=== PATIENT | male | born 1980 | race African-American/Black ===

== ENCOUNTER 2016-11-10 14:55 | Emergency (ER) | payer OTHER ==
[2016-11-10] MEDS ORDERED: NORMAL SALINE 500 ML IV ONE (15:09)
[2016-11-10] MEDS ORDERED: MORPHINE SULFATE 10 MG/ML INJ IV ONE (15:09)
[2016-11-10] MEDS ORDERED: ONDANSETRON HCL INJ/PF 4 MG/2 ML SDV IV ONE (15:09)
--- NOTE | 2016-11-10 15:10 | ER Document Report ---
ED Fall - General Mode of Arrival: Wheelchair Information source: Patient TRAVEL OUTSIDE OF THE [place] IN LAST 30 DAYS: No - HPI Patient complains to provider of: Head and Neck pain Occurred: This afternoon Where: Outdoors Context: Fell from height - 12 feet Associated symptoms: Other - see notes above Prehospital interventions: C-collar <MAY ARANA - Last Filed: 11/10/16 17:03> <KOMAL LATHAM - Last Filed: 11/10/16 18:30> - General Chief Complaint: Neck Pain < 24hrs old Stated Complaint: FALL,NECK PAIN Time Seen by Provider: 11/10/16 15:09 Notes: 36 year old male presents to the ED after falling 12 feet off a ladder and landing on a concrete floor. Patient is complaining of posterior neck and head pain. Patient also states that he lost bowel control secondary to the fall. ( MAY ARANA) - Related data Allergies/Adverse Reactions: iodine [Iodine] Allergy (Verified 11/06/12 11:15) Penicillins Allergy (Verified 11/06/12 11:15) Past Medical History - General Information source: Patient - Social History Smoking Status: Unknown if Ever Smoked Family History: Reviewed & Not Pertinent Pulmonary Medical History: Reports: Hx Asthma Neurological Medical History: Reports: Hx Seizures Psychiatric Medical History: Reports: Hx Bipolar Disorder, Hx Schizophrenia - paranoid schizo - Immunizations Hx Diphtheria, Pertussis, Tetanus Vaccination: Yes <MAY ARANA - Last Filed: 11/10/16 17:03> Review of Systems - Review of Systems Constitutional: No symptoms reported EENT: No symptoms reported Cardiovascular: No symptoms reported Respiratory: No symptoms reported Gastrointestinal: No symptoms reported Genitourinary: No symptoms reported Male Genitourinary: No symptoms reported Musculoskeletal: See HPI, Neck pain - posterior, Other - poseterior headache Skin: No symptoms reported Hematologic/Lymphatic: No symptoms reported Neurological/Psychological: No symptoms reported -: Yes All other systems reviewed and negative <MAY ARANA - Last Filed: 11/10/16 17:03> Physical Exam - General General appearance: Alert In distress: None - HEENT Head: Normocephalic, Atraumatic Eyes: Normal Extraocular movements intact: Yes Pupils: PERRL - Respiratory Respiratory status: No respiratory distress Chest status: Nontender Breath sounds: Normal Chest palpation: Normal - Cardiovascular Rhythm: Regular Heart sounds: Normal auscultation - Abdominal Inspection: Normal Distension: No distension Tenderness: Nontender - Back Back: Tender - Tenderness to palpation from C1 to T4.. No: Normal - Extremities General upper extremity: Normal inspection, Normal ROM General lower extremity: Normal inspection, Normal ROM - Neurological Neuro grossly intact: Yes Cognition: Normal Orientation: Disoriented to time. No: AAOx4 [place] Coma Scale Eye Opening: Spontaneous [place] Coma Scale Verbal: Oriented Ji Coma Scale Motor: Obeys Commands Ji Coma Scale Total: 15 Speech: Normal Motor strength normal: LUE, RUE, LLE, RLE - Psychological Associated symptoms: Normal affect, Normal mood - Skin Skin Temperature: Warm Skin Moisture: Dry Skin Color: Normal <MAY ARANA - Last Filed: 11/10/16 17:03> Course - Laboratory Result Diagrams: 11/10/16 15:15 11/10/16 15:15 <MAY ARANA - Last Filed: 11/10/16 17:03> - Laboratory Result Diagrams: 11/10/16 15:15 11/10/16 15:15 - Diagnostic Test Radiology reviewed: Reports reviewed <KOMAL LATHAM - Last Filed: 11/10/16 18:30> - Re-evaluation Re-evalutation: 11/10/16 16:45 Patient and family updated on results. (MAY ARANA) 11/10/16 17:45 Patient is a 36-year-old male who fell off a ladder, hitting his back and head. Patient initially was confused and complaining of a headache. CT head, neck, chest abdomen and pelvis performed. Patient with no acute findings on imaging. Patient is feeling better after pain and nausea medication. No evidence of bleeding or anything broken. he is able to ambulate and he can tolerate p.o. Patient states that he would like to go home. He will be discharged home with pain medication and is to follow-up with his doctor. Stable for discharge. Return if any worsening or concerning symptoms. (KOMAL LATHAM) - Vital Signs Vital signs: Temp Pulse Resp BP Pulse Ox 98.9 F 16 123/88 H 100 11/10/16 17:30 11/10/16 15:14 11/10/16 16:03 11/10/16 15:14 - Laboratory Laboratory results interpreted by me: 11/10/16 11/10/16 15:15 15:15 Hgb 12.4 L MCH 26.1 L RDW 14.6 H Sodium 145.2 H Creatinine 1.38 H Est GFR (Non-Af Amer) 58 L Critical Care Note - Critical Care Note Total time excluding time spent on procedures (mins): 35 - Evaluate and manage trauma patient, multiple re-evaluations, clearing his C-spine, evaluation for internal injury, management of tachycardia, multiple re-evaluations, counseling patient and family <KOMAL LATHAM - Last Filed: 11/10/16 18:30> Discharge <MAY ARANA - Last Filed: 11/10/16 17:03> <KOMAL LATHAM - Last Filed: 11/10/16 18:30> - Discharge Clinical Impression: Head injury with loss of consciousness Back contusion Qualifiers: Encounter type: initial encounter Laterality: unspecified laterality Qualified Code(s): S20.229A - Contusion of unspecified back wall of thorax, initial encounter Cervical strain, acute Qualifiers: Encounter type: initial encounter Qualified Code(s): S16.1XXA - Strain of muscle, fascia and tendon at neck level, initial encounter Condition: Stable Disposition: AGAINST MEDICAL ADVICE Instructions: Contusion ([facility]), Neck Injury (Cervical Strain) ([facility]), Head Injury Precautions ([facility]), Concussion ([facility]) Prescriptions: Cyclobenzaprine HCl [Flexeril 10 Mg Tablet] 10 mg PO BIDP PRN #20 tablet PRN Reason: Oxycodone HCl/Acetaminophen [Percocet 5-325 mg Tablet] 1 - 2 tab PO Q4H PRN #15 tablet PRN Reason: Forms: Return to Work Scribe Attestation: 11/10/16 18:30 I personally performed the services described in the documentation, reviewed and edited the documentation which was dictated to the scribe in my presence, and it accurately records my words and actions. (KOMAL LATHAM) Scribe Documentation - Scribe Written by Scribe:: Shruthi Kumari, 11/10/2016 1703 acting as scribe for :: Olivia <MAY ARANA - Last Filed: 11/10/16 17:03>
[2016-11-10 15:33] LABS: ABSOLUTE BASOPHILS # (AUTO) 0.1 10^3/uL (0.0-0.2); ABSOLUTE EOSINOPHILS # (AUTO) 0.2 10^3/uL (0.0-0.6); ABSOLUTE LYMPHOCYTES (AUTO) 2.3 10^3/uL (0.5-4.7); ABSOLUTE MONOCYTES (AUTO) 0.5 10^3/uL (0.1-1.4); ABSOLUTE NEUT (AUTO) 3.8 10^3/uL (1.7-8.2); BASOPHILS % (AUTO) 0.8 % (0-2); EOSINOPHILS % (AUTO) 3.4 % (0-6); HEMATOCRIT 38.4 % (37.9-51.0); HEMOGLOBIN 12.4 g/dL (13.5-17.0); HGB HCT DIFFERENCE -1.2; MEAN CORPUSCULAR HEMOGLOBIN 26.1 pg (27.0-33.4); MEAN CORPUSCULAR HGB CONC 32.3 g/dL (32.0-36.0); MEAN CORPUSCULAR VOLUME 81 fl (80-97); MONOCYTES % (AUTO) 7.1 % (3-13); RED BLOOD COUNT 4.76 10^6/uL (4.35-5.55); RED CELL DISTRIBUTION WIDTH 14.6 % (11.5-14.0); SEGMENTED NEUTROPHILS % (AUTO) 55.7 % (42-78); WHITE BLOOD COUNT 6.9 10^3/uL (4.0-10.5)
--- NOTE | 2016-11-10 15:48 | RADIOLOGY REPORT (SQ) ---
EXAM DESCRIPTION: CT HEAD WITHOUT COMPLETED DATE/TIME: 11/10/2016 3:33 pm REASON FOR STUDY: er t1 trauma fall COMPARISON: None. TECHNIQUE: Axial images acquired through the brain without intravenous contrast. Images reviewed wi th bone, brain and subdural windows. Images stored on PACS. All CT scanners at this facility use dose modulation, iterative reconstruction, and/or weight based d osing when appropriate to reduce radiation dose to as low as reasonably achievable (ALARA). [facility]: Dose Right [facility]: CareDose [facility]: Dose Right [facility]: Teradose 4D [facility]: [employer] RADIATION DOSE: Up-to-date CT equipment and radiation dose reduction techniques were employed. CTDIv ol: 59.9 mGy. DLP: 1163 mGy-cm. mGy. LIMITATIONS: None. FINDINGS: VENTRICLES: Normal size and contour. CEREBRUM: No masses. No hemorrhage. No midline shift. Normal hunter/white matter differentiation. N o evidence for acute infarction. CEREBELLUM: No masses. No hemorrhage. No alteration of density. No evidence for acute infarction. EXTRAAXIAL SPACES: No fluid collections. No masses. ORBITS AND GLOBE: No intra- or extraconal masses. Normal contour of globe without masses. CALVARIUM: No fracture. PARANASAL SINUSES: No fluid or mucosal thickening. SOFT TISSUES: No mass or hematoma. OTHER: No other significant finding. IMPRESSION: NORMAL BRAIN CT WITHOUT CONTRAST. TECHNICAL DOCUMENTATION: JOB ID: [id number] Quality ID # [id number]: Final reports with documentation of one or more dose reduction techniques (e.g., Au tomated exposure control, adjustment of the mA and/or kV according to patient size, use of iterative reconstruction technique) 2010 [employer]- All Rights Reserved
[2016-11-10 15:52] LABS: ALANINE AMINOTRANSFERASE 29 U/L (21-72); ALBUMIN 4.6 g/dL (3.5-5.0); ALKALINE PHOSPHATASE 68 U/L (38-126); ANION GAP 14 (5-19); ASPARTATE AMINO TRANSFERASE 32 U/L (17-59); BILIRUBIN,DIRECT 0.3 mg/dL (0.0-0.4); BILIRUBIN,TOTAL 0.5 mg/dL (0.2-1.3); BLOOD UREA NITROGEN 17 mg/dL (7-20); CALCIUM 9.9 mg/dL (8.4-10.2); CARBON DIOXIDE 24 mmol/L (22-30); CHLORIDE 107 mmol/L (98-107); CREATININE RESULT 1.38 mg/dL (0.52-1.25); GLUCOSE 93 mg/dL (75-110); POTASSIUM 4.4 mmol/L (3.6-5.0); SODIUM 145.2 mmol/L (137-145)
--- NOTE | 2016-11-10 16:10 | RADIOLOGY REPORT (SQ) ---
EXAM DESCRIPTION: CT CHEST WITH; CT ABD/PELVIS WITH IV ONLY COMPLETED DATE/TIME: 11/10/2016 3:33 pm REASON FOR STUDY: er t1 trauma fall COMPARISON: CT thoracic spine 09/12/2012 CONTRAST TYPE AND DOSE: contrast/concentration: Isovue 370.00 mg/ml; Total Contrast Delivered: 99.0 ml; Total Saline Delivered: 43.9 ml RENAL FUNCTION: None required. The patient is less than 50 years old TECHNIQUE: CT scan of the chest performed using helical scanning technique with dynamic intravenous contrast injection. Images reviewed with lung, soft tissue and bone windows. Reconstructed coronal a nd sagittal MPR images reviewed. All images stored on PACS. CT scan of the abdomen and pelvis performed with intravenous and without oral contrastusing helical s mary ann technique with dynamic intravenous contrast injection. Images reviewed with lung, soft tissu e and bone windows. Reconstructed coronal and sagittal MPR images reviewed. Delayed images for eval uation of the urinary system also acquired and evaluated. All images stored on PACS. All CT scanners at this facility use dose modulation, iterative reconstruction, and/or weight based d osing when appropriate to reduce radiation dose to as low as reasonably achievable (ALARA). [facility]: Dose Right [facility]: CareDose [facility]: Dose Right [facility]: Teradose 4D [facility]: [employer] RADIATION DOSE: Up-to-date CT equipment and radiation dose reduction techniques were employed. CTDIv ol: 21.0 - 21.1 mGy. DLP: 2749 mGy-cm. . LIMITATIONS: None. FINDINGS: CHEST: LUNGS AND PLEURA: No opacities, nodules, masses. No pneumothorax. No effusions. HILAR AND MEDIASTINAL STRUCTURES: No identified masses or abnormal nodes. HEART AND VASCULAR STRUCTURES: No aneurysm or dissection. No central pulmonary emboli. No pericardi al effusion. HARDWARE: None. THYROID AND OTHER SOFT TISSUES: No masses. No adenopathy. BONES: No significant finding. OTHER: No other significant finding. ABDOMEN AND PELVIS: LIVER: Normal size. No dilated ducts. 2 cm hemangioma left lobe liver image 58. SPLEEN: Normal size. No focal lesions. PANCREAS: No masses. No significant calcifications. No adjacent inflammation or peripancreatic fluid collections. Pancreatic duct not dilated. GALLBLADDER: No identified stones by CT criteria. No inflammatory changes to suggest cholecystitis. ADRENAL GLANDS: No significant masses or asymmetry. RIGHT KIDNEY AND URETER: No solid masses. No significant calcification. No hydronephrosis or hydroure ter. LEFT KIDNEY AND URETER: No solid masses. No significant calcification. No hydronephrosis or hydrouret er. AORTA AND VESSELS: No aneurysm. No dissection. Renal arteries, SMA, celiac without stenosis. RETROPERITONEUM: No retroperitoneal adenopathy, hemorrhage or masses. BOWEL AND PERITONEAL CAVITY: No masses or inflammatory changes. No free fluid or peritoneal masses. APPENDIX: Normal. ABDOMINAL WALL: No masses. No hernias. BONES: No significant or acute findings. PELVIS: No other significant finding. No pelvic free fluid. No adenopathy. No masses. IMPRESSION: NORMAL CT OF THE CHEST WITH IV CONTRAST. NORMAL CT OF THE ABDOMEN AND PELVIS WITH ORAL AND INTRAVENOUS CONTRAST. TECHNICAL DOCUMENTATION: JOB ID: [id number] Quality ID # [id number]: Final reports with documentation of one or more dose reduction techniques (e.g., Au tomated exposure control, adjustment of the mA and/or kV according to patient size, use of iterative reconstruction technique) 2010 [employer]- All Rights Reserved
--- NOTE | 2016-11-10 16:16 | RADIOLOGY REPORT (SQ) ---
EXAM DESCRIPTION: CT CERVICAL SPINE WITHOUT COMPLETED DATE/TIME: 11/10/2016 3:33 pm REASON FOR STUDY: er t1 trauma fall COMPARISON: CT cervical spine 01/24/2016 TECHNIQUE: Axial images acquired through the cervical spine without intravenous contrast. Images re viewed with lung, soft tissue and bone windows. Reconstructed coronal and sagittal MPR images review ed. Images stored on PACS. All CT scanners at this facility use dose modulation, iterative reconstruction, and/or weight based d osing when appropriate to reduce radiation dose to as low as reasonably achievable (ALARA). [facility]: Dose Right [facility]: CareDose [facility]: Dose Right [facility]: Teradose 4D [facility]: [employer] RADIATION DOSE: Up-to-date CT equipment and radiation dose reduction techniques were employed. CTDIv ol: 26.9 mGy. DLP: 536 mGy-cm. mGy. LIMITATIONS: None. FINDINGS: ALIGNMENT: Anatomic. MINERALIZATION: Normal. VERTEBRAL BODIES: Post corpectomy at C4 and C5, with a bone graft in place and anterior fixation plat e with anchoring screws into the C3 and C6 vertebral bodies. Central canal is decompressed at the le susan of prior corpectomies. DISCS: Craniocervical junction, C1-2 is unremarkable. At C2-3 mild posterior bony spurring is presen t without central or right foraminal narrowing. Mild left foraminal narrowing. At C3-4, C4-5, and C5-6 there is bone graft material across the disc spaces from prior corpectomy at C4, C5, and upper half of C6. No central stenosis. Moderate bilateral foraminal narrowing from face t and uncovertebral hypertrophy. At C6-7, broad diffuse posterior disc bulging and bony spurring is present, causing mild central lyssa l narrowing. No significant foraminal stenosis. T1-2 is unremarkable. FACETS, LATERAL MASSES, POSTERIOR ELEMENTS: No fractures. No dislocation. No acute findings. HARDWARE: None in the spine. VISUALIZED RIBS: No fractures. LUNG APICES AND SOFT TISSUES: No significant or acute findings. OTHER: No other significant finding. IMPRESSION: Postsurgical changes, similar compared to 01/24/2016 No acute fracture or malalignment. TECHNICAL DOCUMENTATION: JOB ID: [id number] Quality ID # [id number]: Final reports with documentation of one or more dose reduction techniques (e.g., Au tomated exposure control, adjustment of the mA and/or kV according to patient size, use of iterative reconstruction technique) 2010 [employer]- All Rights Reserved
[2016-11-10] MEDS ORDERED: DIAZEPAM 2 MG TABLET PO ONE (16:51)
[2016-11-10 17:21] VITALS: BP 123/88
[2016-11-10] MEDS ORDERED: HYDROCODONE/ACETAMINOPHEN 5-325 MG 6 TAB/DSPK PO PRN (17:33)
[2016-11-10] MEDS ORDERED: ONDANSETRON ODT 4 MG TAB (6 TAB/DSPK) PO PRN (17:33)
== END 2016-11-10 17:55 | disposition left against medical advice (07) ==
LOC: ER 14:55
DX: S06.0X9A Concussion with loss of consciousness of unspecified duration, initial encounter (principal); S16.1XXA Strain of muscle, fascia and tendon at neck level, initial encounter; S20.229A Contusion of unspecified back wall of thorax, initial encounter; W11.XXXA Fall on and from ladder, initial encounter; Y99.0 Civilian activity done for income or pay; M54.2 Cervicalgia; R51 Headache; R15.9 Full incontinence of feces; R00.0 Tachycardia, unspecified; J45.909 Unspecified asthma, uncomplicated; Z88.0 Allergy status to penicillin
CPT/HCPCS: 99285; 96374; 36415; 85025; 80053; 70450; 71260; 72125; 74177; J3490; J2270; J2405; J7040; 96361

== ENCOUNTER 2016-12-23 14:12 | Emergency (ER) | payer SELFPAY ==
[2016-12-23 14:20] VITALS: BP 112/67
--- NOTE | 2016-12-23 15:02 | ER Document Report ---
ED Medical Screen (RME) - General Chief Complaint: General Weakness Stated Complaint: SPIDER BITE Time Seen by Provider: 12/23/16 14:56 Mode of Arrival: Ambulatory Information source: Patient TRAVEL OUTSIDE OF THE [place] IN LAST 30 DAYS: No - HPI Onset: This morning Onset/Duration: Sudden Context: BITTEN 2 d AGO BY UNSEEN "SPIDER', LATER BITTEN I NEARBY AREA BY TICK (REMOVED) Quality of pain: Achy Severity: Mild Associated Symptoms: Chills, Headache, Sweating Exacerbated by: Denies Relieved by: Denies Similar symptoms previously: No Recently seen / treated by doctor: No - Related Data Smoking: Cigarettes Frequency of alcohol use: Occasional Drug Abuse: None Allergies/Adverse Reactions: iodine [Iodine] Allergy (Verified 12/23/16 14:17) Penicillins Allergy (Verified 12/23/16 14:17) Past Medical History - General Information source: Patient - Social History Cigarette use (# per day): Yes Chew tobacco use (# tins/day): No Frequency of alcohol use: Occasional Drug Abuse: None Lives with: Spouse/Significant other Family history: Reviewed & Not Pertinent - Past Medical History Cardiac Medical History: Reports: None Pulmonary Medical History: Reports: Hx Asthma Neurological Medical History: Reports: Hx Seizures Endocrine Medical History: Reports: None. Denies: Hx Diabetes Mellitus Type 1, Hx Diabetes Mellitus Type 2 Renal/ Medical History: Reports: None. Denies: Hx Peritoneal Dialysis Malignancy Medical History: Reports None Musculoskeltal Medical History: Reports None Psychiatric Medical History: Reports: Hx Bipolar Disorder, Hx Schizophrenia - paranoid schizo - Immunizations Hx Diphtheria, Pertussis, Tetanus Vaccination: Yes Review of Systems - Review of Systems Constitutional: Chills, Diaphoresis EENT: No symptoms reported Cardiovascular: No symptoms reported Respiratory: No symptoms reported Gastrointestinal: Nausea Musculoskeletal: See HPI, Other - GENERALIZED ACHES Skin: See HPI Physical Exam - Vital signs Vitals: Temp Pulse Resp BP Pulse Ox 98.0 F 85 18 112/67 95 12/23/16 14:17 12/23/16 14:17 12/23/16 14:17 12/23/16 14:17 12/23/16 14:17 Interpretation: Normal. No: Tachycardic, Tachypneic, Febrile - General General appearance: Appears well, Alert In distress: None - HEENT Head: Normocephalic Eyes: Normal Conjunctiva: Normal Ears: Normal Nasal: Normal Mouth/Lips: Normal Mucous membranes: Normal Neck: Normal, Supple - Respiratory Respiratory status: No respiratory distress - Cardiovascular Rhythm: Regular - Abdominal Inspection: Normal Distension: No distension Bowel sounds: Normal - Back Back: Normal - Extremities General upper extremity: No: Normal inspection General lower extremity: Normal inspection - SMALL ULCERATED LESION MEDIAL/ PROXIMAL L. ARM - Neurological Neuro grossly intact: Yes Cognition: Normal Orientation: AAOx4 - Psychological Associated symptoms: Normal affect, Normal mood - Skin Skin Temperature: Warm Skin Moisture: Dry Skin Color: Normal Skin Turgor: Elastic Skin irregularity: Lesion - SEE AOVE Course - Vital Signs Vital signs: Temp Pulse Resp BP Pulse Ox 98.0 F 85 18 112/67 95 12/23/16 14:17 12/23/16 14:17 12/23/16 14:17 12/23/16 14:17 12/23/16 14:17 Doctor's Discharge - Discharge Clinical Impression: Spider bite Qualifiers: Encounter type: initial encounter Injury intent: accidental or unintentional Qualified Code(s): T63.301A - Toxic effect of unspecified spider venom, accidental (unintentional), initial encounter Tick bite Qualifiers: Encounter type: initial encounter Qualified Code(s): W57.XXXA - Bitten or stung by nonvenomous insect and other nonvenomous arthropods, initial encounter Headache Qualifiers: Headache type: unspecified Headache chronicity pattern: acute headache Intractability: not intractable Qualified Code(s): R51 - Headache Condition: Stable Disposition: HOME, SELF-CARE Instructions: Tick Bites ([facility]), Headache ([facility]), Oral Narcotic Medication ([facility]) , Doxycycline ([facility]) Additional Instructions: REST, DRINK PLENTY OF FLUIDS. TAKE DOXYCYCLINE DIRECTED. YOU MAY TAKE FIORICET FOR HEADACHE IF NEEDED. RETURN TO E.R. OR FOLLOW UP WITH YOUR PRIMARY CARE PROVIDER IF NOT IMPROVED IN 48 HOURS, OR SOONER IF WORSE ANY TIME. Prescriptions: Butalb/Acetaminophen/Caffeine [Fioricet (50-325-40 mg) Tablet] 1 - 2 tab PO Q4H PRN #20 each PRN Reason: For Headache Doxycycline Monohydrate 100 mg PO BID #28 capsule Forms: Return to Work
== END 2016-12-23 15:30 | disposition home or self-care (01) ==
LOC: ER 14:12
DX: T63.301A Toxic effect of unspecified spider venom, accidental (unintentional), initial encounter (principal); T14.8 Other injury of unspecified body region; W57.XXXA Bitten or stung by nonvenomous insect and other nonvenomous arthropods, initial encounter; R68.83 Chills (without fever); R51 Headache; R61 Generalized hyperhidrosis; R60.9 Edema, unspecified; R11.0 Nausea; J45.909 Unspecified asthma, uncomplicated; Z72.0 Tobacco use; Z88.0 Allergy status to penicillin
CPT/HCPCS: 99282

== ENCOUNTER 2017-06-08 00:33 | Emergency (ER) | payer OTHER ==
--- NOTE | 2017-06-08 01:55 | RADIOLOGY REPORT (SQ) ---
EXAM DESCRIPTION: SHOULDER LEFT 1 VIEW CLINICAL HISTORY: fall, pain COMPARISON: None. FINDINGS: Single view of the left shoulder. No definite acute fracture or dislocation based on this single frontal view. Degenerative change of the acromioclavicular joint. No left sided rib fracture or left-sided pneumothorax. IMPRESSION: 1. No definite acute fracture or dislocation based on single frontal view.
--- NOTE | 2017-06-08 01:55 | RADIOLOGY REPORT (SQ) ---
EXAM DESCRIPTION: CHEST SINGLE VIEW CLINICAL HISTORY: fall, pain COMPARISON: 12/19/2015 FINDINGS: Single frontal view of the chest. The cardiomediastinal silhouette has normal size and contour. No consolidation, pneumothorax, or pleural effusion. No displaced rib fractures identified. Upper abdominal soft tissues are unremarkable. Postoperative change of the cervical spine. IMPRESSION: 1. No acute pulmonary process identified.
--- NOTE | 2017-06-08 02:17 | ER Document Report ---
ED Fall - General Mode of Arrival: Ambulatory Information source: Patient TRAVEL OUTSIDE OF THE [place] IN LAST 30 DAYS: No - HPI Patient complains to provider of: Neck and lower back pain Occurred: Yesterday Location of injury/pain: Other - see notes above Prehospital interventions: C-collar <MAY ARANA - Last Filed: 06/08/17 02:32> <KOMAL LATHAM - Last Filed: 06/08/17 05:06> - General Chief Complaint: Fall Stated Complaint: NECK SHOULDER PAIN Time Seen by Provider: 06/08/17 01:19 Notes: 36 year old male presents to the ED accompanied by a public health service officer complaining of lower back pain and medial bilateral scapula pain that started secondary to a fall that occurred yesterday. Patient reports that he fell down 20 flights of metal stairs from the second story. Patient lost consciousness for a brief moment, but remembers everything. Patient has midline lower back pain and exacerbated pain when moving his right leg. Patient reports decreased sensation to the right lower extremity. (MAY ARANA) - Related data Allergies/Adverse Reactions: iodine [Iodine] Allergy (Verified 12/23/16 14:17) Penicillins Allergy (Verified 12/23/16 14:17) Past Medical History - General Information source: Patient - Social History Smoking Status: Former Smoker Frequency of alcohol use: None Drug Abuse: None Family History: Reviewed & Not Pertinent Patient has suicidal ideation: No Patient has homicidal ideation: No Pulmonary Medical History: Reports: Hx Asthma Neurological Medical History: Reports: Hx Seizures Endocrine Medical History: Denies: Hx Diabetes Mellitus Type 1, Hx Diabetes Mellitus Type 2 Renal/ Medical History: Denies: Hx Peritoneal Dialysis Psychiatric Medical History: Reports: Hx Bipolar Disorder, Hx Schizophrenia - paranoid schizo - Immunizations Hx Diphtheria, Pertussis, Tetanus Vaccination: Yes <MAY ARANA - Last Filed: 06/08/17 02:32> Review of Systems - Review of Systems Constitutional: No symptoms reported EENT: No symptoms reported Cardiovascular: No symptoms reported Respiratory: No symptoms reported Gastrointestinal: No symptoms reported Genitourinary: No symptoms reported Male Genitourinary: No symptoms reported Musculoskeletal: See HPI, Back pain - lower, Neck pain Skin: No symptoms reported Hematologic/Lymphatic: No symptoms reported Neurological/Psychological: See HPI, Sensory change - decreased sensation of the right lower extremity <MAY ARANA - Last Filed: 06/08/17 02:32> Physical Exam - General General appearance: Alert In distress: None - HEENT Head: Normocephalic, Atraumatic Eyes: Normal Extraocular movements intact: Yes Pupils: PERRL Neck: Other - Tenderness to palpation from C5-C7. No: Normal - Respiratory Respiratory status: No respiratory distress Breath sounds: Normal - Cardiovascular Rhythm: Regular Heart sounds: Normal auscultation - Abdominal Inspection: Normal - Back Back: Tender - Lower back, CVA tenderness - right, Other - TTP to the medial scapula, bilaterally. No: Normal - Extremities General upper extremity: Normal inspection, Normal ROM General lower extremity: No: Normal inspection - see foot and ankle exam below Ankle: Limited ROM. No: Normal Foot: Other - limited ROM - Neurological Neuro grossly intact: Yes Cognition: Normal Orientation: AAOx4 Ji Coma Scale Eye Opening: Spontaneous [place] Coma Scale Verbal: Oriented Ji Coma Scale Motor: Obeys Commands [place] Coma Scale Total: 15 Speech: Normal Sensory: Altered light touch - decreased sensation to light tough to the right foot. No: Normal - Psychological Associated symptoms: Normal affect, Normal mood - Skin Skin Temperature: Warm Skin Moisture: Dry Skin Color: Normal <MAY ARANA - Last Filed: 06/08/17 02:32> - Vital signs Vitals: Temp Pulse Resp BP Pulse Ox 98.7 F 77 18 117/72 100 06/08/17 00:33 06/08/17 00:33 06/08/17 00:33 06/08/17 00:33 06/08/17 00:33 Course <MAY ARANA - Last Filed: 06/08/17 02:32> - Diagnostic Test Radiology reviewed: Reports reviewed <KOMAL LATHAM - Last Filed: 06/08/17 05:06> - Re-evaluation Re-evalutation: 06/08/17 04:39 Patient with no acute findings on imaging. He is able to ambulate without difficult. Taking p.o. without difficulty. Moving his neck without difficulty. He is neurovascularly intact. He would like a note to see that he can have more pillows at intermediate so that he can relieve some of the pressure on his back. Stable for discharge. He may take Tylenol or ibuprofen as needed. Agrees with this plan. (KOMAL LATHAM) - Vital Signs Vital signs: Temp Pulse Resp BP Pulse Ox 98.3 F 75 16 124/79 97 06/08/17 04:57 06/08/17 04:57 06/08/17 04:57 06/08/17 04:57 06/08/17 04:57 Discharge <MAY ARANA - Last Filed: 06/08/17 02:32> <KOMAL LATHAM - Last Filed: 06/08/17 05:06> - Discharge Clinical Impression: Head injury Qualifiers: Encounter type: initial encounter Qualified Code(s): S09.90XA - Unspecified injury of head, initial encounter Contusion, back Qualifiers: Encounter type: initial encounter Laterality: unspecified laterality Qualified Code(s): S20.229A - Contusion of unspecified back wall of thorax, initial encounter Cervical strain Qualifiers: Encounter type: initial encounter Qualified Code(s): S16.1XXA - Strain of muscle, fascia and tendon at neck level, initial encounter Condition: Stable Disposition: HOME, SELF-CARE Instructions: Contusion ([facility]), Head Injury Precautions ([facility]), Low Back Pain ( [facility]), Neck Injury (Cervical Strain) ([facility]) Additional Instructions: You may take Tylenol or Ibuprofen as needed for pain. You may have extra pillows to help relieve the pressure on your back. Scribe Attestation: 06/08/17 04:45 I personally performed the services described in the documentation, reviewed and edited the documentation which was dictated to the scribe in my presence, and it accurately records my words and actions. (KOMAL LATHAM) Scribe Documentation - Scribe Written by Scribe:: Shruthi Kumari, 06/08/2017 [id number] acting as scribe for :: Olivia <MAY ARANA - Last Filed: 06/08/17 02:32>
[2017-06-08] MEDS ORDERED: ACETAMINOPHEN 325 MG TABLET PO ONE (02:18)
[2017-06-08] MEDS ORDERED: ONDANSETRON 4 MG TAB.RAPDIS PO ONE (02:18)
--- NOTE | 2017-06-08 03:23 | RADIOLOGY REPORT (SQ) ---
EXAM DESCRIPTION: CT HEAD WITHOUT CLINICAL HISTORY: fall down stairs, loc, head injury COMPARISON: None available TECHNIQUE: Axial CT of the head obtained from the skull apex to the skull base without contrast. FINDINGS: No acute intracranial hemorrhage identified. No mass, mass effect, shift of the midline, abnormal extra-axial fluid collection or CT evidence of acute ischemic change identified. The ventricular system is unremarkable. No acute abnormalities of the supratentorial white matter, basal ganglia, cerebellum, or brainstem. Mucosal thickening of the paranasal sinuses. No skull fracture identified. Visualized orbits and globes are unremarkable. DLP: 1316.28 mGy-cm IMPRESSION: 1. No acute intracranial abnormality identified. This exam was performed according to our departmental dose-optimization program, which includes automated exposure control, adjustment of the mA and/or kV according to patient size and/or use of iterative reconstruction technique.
--- NOTE | 2017-06-08 03:55 | RADIOLOGY REPORT (SQ) ---
EXAM DESCRIPTION: CT CHEST, ABDOMEN AND PELVIS WITHOUT CONTRAST CLINICAL HISTORY: falll, back/R flank pain, r leg pain, paresthesias COMPARISON: None Available. TECHNIQUE: CT of the chest, abdomen and pelvis without IV contrast. FINDINGS: CHEST: No abnormalities of visualized esophagus. Great vessels have normal anatomic configuration. No significant mediastinal fat stranding. No abnormalities of the thoracic aorta by noncontrast CT criteria. No cardiomegaly, pericardial effusion, or coronary artery atherosclerosis. No abnormalities of the esophagus. No mediastinal lymphadenopathy. Lung windows demonstrate no consolidation, pneumothorax, or pleural effusion. No abnormalities of the trachea. Abdomen: The liver has normal size and density. No calcified gallstones. The spleen, pancreas, and adrenal glands are unremarkable. The kidneys have normal size and contour without evidence of hydronephrosis. No obstructing ureteral calculi. The aorta and IVC have normal caliber and position. No free intraperitoneal air. The stomach and duodenum have normal course. Pelvis: Prostate is not enlarged. Urinary bladder is unremarkable. No free pelvic fluid or lymphadenopathy. No dilated loops of large or small bowel. Normal appendix. No destructive bone lesions identified. No acute fractures identified. Mild degenerative change of the spine. DLP: 1982.97 mGy-cm IMPRESSION: 1. No evidence of traumatic injury involving the chest, abdomen, or pelvis by noncontrast CT criteria. This exam was performed according to our departmental dose-optimization program, which includes automated exposure control, adjustment of the mA and/or kV according to patient size and/or use of iterative reconstruction technique.
--- NOTE | 2017-06-08 04:17 | RADIOLOGY REPORT (SQ) ---
EXAM DESCRIPTION: CT CERVICAL SPINE WITHOUT CLINICAL HISTORY: fall down stairs, neck pain COMPARISON: None available TECHNIQUE: Axial CT of the cervical spine obtained without contrast. FINDINGS: Alignment of the cervical spine is maintained without evidence of subluxation. The atlantoaxial, atlantodental, and occipitoatlantal intervals are preserved. No fracture identified. Vertebral body height preserved. Prevertebral soft tissues are unremarkable. Anterior fusion at C3-C6. Mild endplate spondylosis at C6/7. No significant central canal nor neural foraminal narrowing. Mild facet arthropathy. Visualized skull base is intact. No fracture of the visualized facial bones. Visualized mastoid air cells and paranasal sinuses are well aerated. Visualized thyroid is unremarkable. No cervical lymphadenopathy. No pneumothorax in the visualized lung apices. DLP:236.23 mGy-cm IMPRESSION: 1. No acute fracture or subluxation of the cervical spine. This exam was performed according to our departmental dose-optimization program, which includes automated exposure control, adjustment of the mA and/or kV according to patient size and/or use of iterative reconstruction technique.
[2017-06-08] MEDS ORDERED: KETOROLAC TROMETHAMINE 60 MG/2 ML SDV IM ONE (04:23)
[2017-06-08] MEDS ORDERED: METOCLOPRAMIDE HCL 10 MG TABLET PO ONE (04:23)
[2017-06-08 04:58] VITALS: BP 124/79
== END 2017-06-08 05:04 | disposition home or self-care (01) ==
LOC: ER 00:33
DX: S09.90XA Unspecified injury of head, initial encounter (principal); S20.229A Contusion of unspecified back wall of thorax, initial encounter; S16.1XXA Strain of muscle, fascia and tendon at neck level, initial encounter; M54.5 Low back pain; W10.9XXA Fall (on) (from) unspecified stairs and steps, initial encounter; Z88.0 Allergy status to penicillin
CPT/HCPCS: 99284; 96372; 71045; 73020; 70450; 71250; 72125; 74176; L0120; J1885; S0119

== ENCOUNTER 2020-02-04 19:12 | Emergency (ER) | payer SELFPAY ==
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
--- NOTE | 2020-02-04 20:25 | RADIOLOGY REPORT (SQ) ---
EXAM DESCRIPTION: CT CERVICAL SPINE WITHOUT IV CONTRAST COMPLETED DATE/TME: 02/04/2020 19:55 CLINICAL HISTORY: 39 years, Male, Fall head neck and low back injury loss of conscio COMPARISON: Prior study from 06/08/2017 TECHNIQUE: Noncontrast CT cervical spine was acquired. Coronal and sagittal reformations were created. Images stored on PACS. All CT scanners at this facility use dose modulation, iterative reconstruction, and/or weight based dosing when appropriate to reduce radiation dose to as low as reasonably achievable (ALARA). [facility]: Dose Right [facility]: CareDose [facility]: Dose Right [facility]: Teradose 4D [facility]: [place]ora LIMITATIONS: None. FINDINGS: Limited evaluation of the posterior fossa reveals no suspicious abnormality. Occipital condyles are normal. Lateral masses of C1 and C2 align properly. Base and tip of the dens are intact. Craniocervical alignment is maintained. Cervical vertebral body heights and alignments are maintained. There are postsurgical changes of anterior cervical fusion spanning C3-C6. Hardware appears well seated and intact. There is some degree of ossification of the posterior longitudinal ligament spanning C2-C3. Underlying mild multilevel cervical spondylosis is evident, designated by hypertrophic endplate spurring. Limited evaluation of the lung apices reveals no suspicious abnormality. Paravertebral soft tissues show no suspicious abnormality either. IMPRESSION: No acute fracture or malalignment. TECHNICAL DOCUMENTATION: Quality ID # [id number]: Final reports with documentation of one or more dose reduction techniques (e.g., Automated exposure control, adjustment of the mA and/or kV according to patient size, use of iterative reconstruction technique) copyright 2011 [employer]- All Rights Reserved
--- NOTE | 2020-02-04 20:27 | RADIOLOGY REPORT (SQ) ---
INDICATION: Fall head neck and low back injury loss of conscio. Loss of consciousness post trauma COMPARISON: June 08, 2017 CORRELATION: None TECHNIQUE: Noncontrast spiral axial CT images were obtained from the skull base to vertex. This exam was performed according to our departmental dose-optimization program, which includes automated exposure control, adjustment of the mA and/or kV according to patient size and/or use of iterative reconstruction techniques. FINDINGS: There is no evidence of acute intracranial hemorrhage, midline shift, mass effect or mass lesion. Moeller-white differentiation is normal. There is no evidence of acute large territory infarct. Ventricles and extracerebral spaces are within normal limits, for age. The visualized paranasal sinuses are grossly clear. The orbits and eyeballs are unremarkable. The mastoid air cells are clear. Skull base and calvarium appear intact. IMPRESSION: No acute intracranial process is identified. No adverse change
[2020-02-04] MEDS ORDERED: HYDROCODONE/ACETAMINOPHEN 5-325 MG TABLET PO ONE (20:33)
--- NOTE | 2020-02-04 20:51 | RADIOLOGY REPORT (SQ) ---
EXAM DESCRIPTION: XR LUMBAR SPINE ANTEROPOSTERIOR, LATERAL, AND OBLIQUES 5 views COMPLETED DATE/TME: 02/04/2020 19:55 CLINICAL HISTORY: 39 years, Male, Fall, head neck and low back injury COMPARISON: None. NUMBER OF VIEWS: TECHNIQUE: LIMITATIONS: None. FINDINGS: No fracture or dislocation. There is mild vertebral body degenerative spurring at several lumbar levels. The facet joints appear intact. Mineralization of bone appears normal. IMPRESSION: No fracture or dislocation. copyright 2010 [employer]- All Rights Reserved
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
[2020-02-04] MEDS ORDERED: ONDANSETRON 4 MG TAB.RAPDIS PO ONE (22:07)
[2020-02-04] MEDS ORDERED: OXYCODONE-ACETAMINOPHEN 5-325 MG TABLET PO ONE (22:07)
[2020-02-04 22:23] VITALS: BP 131/75
== END 2020-02-04 22:23 | disposition home or self-care (01) ==
LOC: ER 19:12
DX: S09.90XA Unspecified injury of head, initial encounter (principal); M54.5 Low back pain; M54.2 Cervicalgia; W10.9XXA Fall (on) (from) unspecified stairs and steps, initial encounter; F17.200 Nicotine dependence, unspecified, uncomplicated; Z88.0 Allergy status to penicillin
CPT/HCPCS: 99284; 72110; 70450; 72125; S0119

== ENCOUNTER 2020-05-02 14:12 | Emergency (ER) | payer SELFPAY ==
--- NOTE | 2020-05-02 14:34 | ER Document Report ---
ED Medical Screen (RME) - General Chief Complaint: Psych Problem Stated Complaint: PSYCH EVAL Time Seen by Provider: 05/02/20 14:18 Mode of Arrival: Ambulatory Information source: Patient Notes: 39-year-old male presented to ED for taking his son's medications. He states the plan when he took the medications was to kill himself. is trying to think of what the medicines were that the patient took. He states his abdomen is hurting. He states his abdomen is cramping and hurting. He states he took all the medicines that were there. is not sure how many medicines or what kind were there but she is trying to look it up. He states he took the medications this morning. He states he has attempted suicide in the past he states he attempted this after getting out of [facility] and took all of his mental health medicines at that time also. Dates she could not get him awake that time and had to call the ambulance to bring him to the emergency room. I have greeted and performed a rapid initial assessment of this patient. A comprehensive ED assessment and evaluation of the patient, analysis of test results and completion of medical decision making process will be conducted by an additional ED providers. TRAVEL OUTSIDE OF THE [place] IN LAST 30 DAYS: No - Related Data Allergies/Adverse Reactions: iodine [Iodine] Allergy (Verified 05/02/20 14:26) Penicillins Allergy (Verified 05/02/20 14:26) Past Medical History - Social History Family history: Reviewed & Not Pertinent Pulmonary Medical History: Reports: Hx Asthma Neurological Medical History: Reports: Hx Seizures Endocrine Medical History: Denies: Hx Diabetes Mellitus Type 1, Hx Diabetes Mellitus Type 2 Renal/ Medical History: Denies: Hx Peritoneal Dialysis Psychiatric Medical History: Reports: Hx Bipolar Disorder, Hx Schizophrenia - paranoid schizo Past Surgical History: Reports: Hx Orthopedic Surgery - Immunizations Hx Diphtheria, Pertussis, Tetanus Vaccination: Yes Physical Exam - Vital signs Vitals: Temp Pulse Resp BP Pulse Ox 98.1 F 109 H 16 133/57 H 98 05/02/20 14:17 05/02/20 14:17 05/02/20 14:17 05/02/20 14:17 05/02/20 14:17 Course - Vital Signs Vital signs: Temp Pulse Resp BP Pulse Ox 98.1 F 109 H 16 133/57 H 98 05/02/20 14:17 05/02/20 14:17 05/02/20 14:17 05/02/20 14:17 05/02/20 14:17
--- NOTE | 2020-05-02 15:11 | ER Document Report ---
ED Medical Screen (RME) - General Chief Complaint: Overdose Stated Complaint: PSYCH EVAL Time Seen by Provider: 05/02/20 14:18 Mode of Arrival: Ambulatory TRAVEL OUTSIDE OF THE [place] IN LAST 30 DAYS: No - Related Data Allergies/Adverse Reactions: iodine [Iodine] Allergy (Verified 05/02/20 14:26) Penicillins Allergy (Verified 05/02/20 14:26) Past Medical History - Social History Chew tobacco use (# tins/day): Yes Frequency of alcohol use: Occasional Drug Abuse: Cocaine, Prescription drugs Family history: Reviewed & Not Pertinent Pulmonary Medical History: Reports: Hx Asthma Neurological Medical History: Reports: Hx Seizures Endocrine Medical History: Denies: Hx Diabetes Mellitus Type 1, Hx Diabetes Mellitus Type 2 Renal/ Medical History: Denies: Hx Peritoneal Dialysis Psychiatric Medical History: Reports: Hx Bipolar Disorder, Hx Schizophrenia - paranoid schizo Past Surgical History: Reports: Hx Orthopedic Surgery - Immunizations Hx Diphtheria, Pertussis, Tetanus Vaccination: Yes Physical Exam - Vital signs Vitals: Temp Pulse Resp BP Pulse Ox 98.1 F 109 H 16 133/57 H 98 05/02/20 14:17 05/02/20 14:17 05/02/20 14:17 05/02/20 14:17 05/02/20 14:17 Course - Vital Signs Vital signs: Temp Pulse Resp BP Pulse Ox 98.1 F 109 H 16 133/57 H 98 05/02/20 14:17 05/02/20 14:17 05/02/20 14:17 05/02/20 14:17 05/02/20 14:17 - Laboratory Result Diagrams: 05/02/20 15:42 05/02/20 15:42
[2020-05-02] MEDS ORDERED: DIPHENHYDRAMINE HCL 50 MG/ML VIAL IM ONE (15:56)
[2020-05-02] MEDS ORDERED: LORAZEPAM INJ 2 MG/1 ML VIAL IM ONE (15:56)
[2020-05-02] MEDS ORDERED: HALOPERIDOL LACTATE INJ 5 MG/1 ML VIAL IM ONE (15:57)
[2020-05-02 16:07] LABS: ABSOLUTE EOSINOPHILS # (AUTO) 0.2 10^3/uL (0.0-0.6); ABSOLUTE LYMPHOCYTES (AUTO) 2.4 10^3/uL (0.5-4.7); ABSOLUTE MONOCYTES (AUTO) 0.5 10^3/uL (0.1-1.4); ABSOLUTE NEUT (AUTO) 3.2 10^3/uL (1.7-8.2); BASOPHILS % (AUTO) 0.7 % (0-2); HEMATOCRIT 36.4 % (37.9-51.0); HEMOGLOBIN 12.2 g/dL (13.5-17.0); LYMPHOCYTES % (AUTO) 38.4 % (13-45); MEAN CORPUSCULAR HEMOGLOBIN 26.9 pg (27.0-33.4); MEAN CORPUSCULAR HGB CONC 33.5 g/dL (32.0-36.0); MEAN CORPUSCULAR VOLUME 80 fl (80-97); MONOCYTES % (AUTO) 7.6 % (3-13); PLATELET COUNT 297 10^3/uL (150-450); RED BLOOD COUNT 4.53 10^6/uL (4.35-5.55); RED CELL DISTRIBUTION WIDTH 15.3 % (11.5-14.0); SEGMENTED NEUTROPHILS % (AUTO) 50.3 % (42-78); TOTAL CELLS COUNTED % (AUTO) 100 %; WHITE BLOOD COUNT 6.3 10^3/uL (4.0-10.5)
--- NOTE | 2020-05-02 16:22 | ER Document Report ---
ED General <FELY DELAROSA - Last Filed: 05/02/20 17:40> - General Mode of Arrival: Ambulatory TRAVEL OUTSIDE OF THE [place] IN LAST 30 DAYS: No <LIS GUTIERREZ - Last Filed: 05/02/20 18:51> - General Chief Complaint: Overdose Stated Complaint: PSYCH EVAL Time Seen by Provider: 05/02/20 14:18 Primary Care Provider: [facility] [Outside] - Follow up as needed [facility] [Outside] - Follow up as needed TEOFILO ROMERO DO [NO LOCAL MD] - Follow up as needed - HPI Notes: 39-year-old male presents to the emergency room by private vehicle with significant other for evaluation of suicidal ideation after he allegedly took significant other son's medications but this was not witnessed by significant other and patient does deny this. Patient states he has been using cocaine the last 2 days, a thousand dollars worth of cocaine and this is what caused him to be angry and sweat. The significant other states the reason why she brought him to the emergency room is because he was sweating, not because of concerns of cocaine or possibly ingesting sons medications. This is a different story than what the triage nurse was told. Denies fevers, chills, chest pain,palpitations, shortness of breath, dyspnea, nausea, vomiting, diarrhea, abdominal pain, hematuria,blurred vision, double vision, loss of vision, speech changes, LH, dizziness, syncope, headaches, wheezing, ST, URI, neck pain, weakness, bowel or bladder dysfunction, saddle anesthesia, numbness or tingling in bilateral upper or lower extremities equally, muscle paralysis, weakness in bilateral upper or lower extremities equally or rash. (LIS GUTIERREZ) - Related Data Allergies/Adverse Reactions: iodine [Iodine] Allergy (Verified 05/02/20 14:26) Penicillins Allergy (Verified 05/02/20 14:26) Past Medical History - General Information source: Patient - Social History Smoking Status: Current Every Day Smoker Chew tobacco use (# tins/day): Yes Frequency of alcohol use: Occasional Drug Abuse: Cocaine, Prescription drugs Family History: Reviewed & Not Pertinent Patient has homicidal ideation: No Pulmonary Medical History: Reports: Hx Asthma Neurological Medical History: Reports: Hx Seizures Endocrine Medical History: Denies: Hx Diabetes Mellitus Type 1, Hx Diabetes Mellitus Type 2 Renal/ Medical History: Denies: Hx Peritoneal Dialysis Psychiatric Medical History: Reports: Hx Bipolar Disorder, Hx Schizophrenia - paranoid schizo Past Surgical History: Reports: Hx Orthopedic Surgery - Immunizations Hx Diphtheria, Pertussis, Tetanus Vaccination: Yes <LIS GUTIERREZ - Last Filed: 05/02/20 18:51> Review of Systems - Review of Systems Constitutional: No symptoms reported EENT: No symptoms reported Cardiovascular: No symptoms reported Respiratory: No symptoms reported Gastrointestinal: No symptoms reported Genitourinary: No symptoms reported Male Genitourinary: No symptoms reported Musculoskeletal: No symptoms reported Skin: No symptoms reported Hematologic/Lymphatic: No symptoms reported Neurological/Psychological: Suicidal ideation, Other - agitation <LIS GUTIERREZ - Last Filed: 05/02/20 18:51> Physical Exam <LIS GUTIERREZ - Last Filed: 05/02/20 18:51> - Vital signs Vitals: Temp Pulse Resp BP Pulse Ox 98.1 F 109 H 16 133/57 H 98 05/02/20 14:17 05/02/20 14:17 05/02/20 14:17 05/02/20 14:17 05/02/20 14:17 - Notes Notes: MEDICATIONS: I agree with the patient medications as charted by the RN. ALLERGIES: I agree with the allergies as charted by the RN. PAST MEDICAL HISTORY/PAST SURGICAL HISTORY: Reviewed and agree as charted by RN. SOCIAL HISTORY: Reviewed and agree as charted by RN. FAMILY HISTORY: No significant familial comorbid conditions directly related to patient complaint EXAM: Reviewed vital signs as charted by RN. PHYSICAL EXAMINATION:reviewed vital signs by RN GENERAL: Well-appearing, morbidly obese and in no acute distress. HEAD: Atraumatic, normocephalic. EYES: Pupils equal round and reactive to light, extraocular movements intact, sclera anicteric, conjunctiva are normal. ENT: Nares patent, oropharynx clear without exudates. Moist mucous membranes. NECK: Normal range of motion, supple without lymphadenopathy LUNGS: Breath sounds clear to auscultation bilaterally and equal. No wheezes rales or rhonchi. HEART: Regular rate and rhythm without murmurs ABDOMEN: Soft, nontender, nondistended abdomen. No guarding, no rebound. No masses appreciated. Musculoskeletal: Normal range of motion, no pitting or edema. No cyanosis. NEUROLOGICAL: Cranial nerves grossly intact. Normal speech, normal gait. Normal sensory, motor exams PSYCH: Agitated, hostile SKIN: Warm, Dry, normal turgor, no rashes or lesions noted. (BRENDALIS A) Course - Laboratory Result Diagrams: 05/02/20 15:42 05/02/20 15:42 <WASHINGTONFELY - Last Filed: 05/02/20 17:40> - Laboratory Result Diagrams: 05/02/20 15:42 05/02/20 15:42 <LIS GUTIERREZ - Last Filed: 05/02/20 18:51> - Re-evaluation Re-evalutation: 05/02/20 18:44 Afebrile vitals stable and patient very angry. When I walked in the room to assess patient, he was pulling off his EKG leads saying that he wanted to leave,. I was told that patient did overdose on home medication by nursing staff, told him that he cannot leave until there is a mental health evaluation. Patient did pull off leads in walk-through ER to leave was at the double doors where the lobby was and security did escort him back to his room. Patient was screaming and hostile towards me and the nursing staff. Patient was put on petition. Mental health at bedside to discuss with him what the issues are. Patient adamantly denies taking any prescribed medications, trying to commit SI, denies any HI. Patient states that he has been taking a large amount of cocaine over the last 2 days and smoking marijuana if anything he needs detox. He denies any want to kill himself. CBC negative for leukocytosis or anemia, CMP negative for hepatic or renal dysfunction, urine tox is positive for cocaine and marijuana. I discussed the patient that these illicit drugs especially the cocaine can cause heart conditions and he does need to consider detox. Patient states he does want to go to [facility] voluntarily to detox from cocaine. Mental health does not feel that he is a threat to himself or to anyone else, he does not meet any IVC criteria and they do want to take him off petition. When I spoke with patient again he was calm, collected, speaking in a manner that was respectful he denied any SI or HI and he stated he does want to seek out treatment for his cocaine substance abuse. His significant other at bedside was very supportive. He was agreeable and completely different from how he was when I initially met him. Mental health states that they were in the room for an hour and essentially he really needed to just vent. Patient adamantly denies any ingestion of any prescribed medications and any intent to kill himself. Resources have been given to patient for substance abuse, anger management,mental health resources for conseling and mobile crisis. After performing a Medical Screening Examination, I estimate there is LOW risk for RUPTURED ESOPHAGUS, PNEUMOTHORAX, PULMONARY EMBOLISM, ACUTE CORONARY SYNDROME, OR THORACIC AORTIC DISSECTION, thus I consider the discharge disposition reasonable. I have reevaluated this patient multiple times and no significant life threatening changes are noted. The patient and I have discussed the diagnosis and risks, and we agree with discharging home with close follow-up. We also discussed returning to the Emergency Department immediately if new or worsening symptoms occur. We have discussed the symptoms which are most concerning (e.g., bloody sputum, worsening pain or shortness of breath) that necessitate immediate return. (LIS GUTIERREZ) - Vital Signs Vital signs: Temp Pulse Resp BP Pulse Ox 98.1 F 109 H 13 133/57 H 100 05/02/20 14:17 05/02/20 14:17 05/02/20 15:35 05/02/20 14:17 05/02/20 15:35 - Laboratory Laboratory results interpreted by me: 05/02/20 05/02/20 05/02/20 15:42 15:42 17:20 Hgb 12.2 L Hct 36.4 L MCH 26.9 L RDW 15.3 H Glucose 128 H Urine Protein 30 H Urine Urobilinogen 2.0 H Urine Ascorbic Acid 40 H Salicylates < 1.0 L Acetaminophen < 10 L Discharge <FELY DELAROSA - Last Filed: 05/02/20 17:40> <LIS GUTIERREZ - Last Filed: 05/02/20 18:51> - Discharge Clinical Impression: Overdose Condition: Fair Disposition: HOME, SELF-CARE Additional Instructions: You have been evaluated by both medical and behavioral health teams for suspected overdose. You have been deemed appropriate for discharge. While in the emergency department you received the following services/or had access to: Medical screening and assessment, nursing services, dietary services, pharmacological services, one-on-one counseling and/or psychotherapy, environmental services, and continuous observation by a patient drug safety scientist. Overdose You were have suspected to have taken more medication than you should have, however lab work does not support this. In the future, you should be careful when using illegal substances and are recommended to refrain from using. Follow up care: You are currently not involved in any outpatient services. You are highly encouraged to follow up with an outpatient provider for medication management as you mentioned not being on medications since being discharged from long term in October. Your lab work has been reviewed and does not support an overdose of medications you were taking in the past. You are encouraged to decrease and later abstain from using illegal substances as they alter your mind and often result in impulsivity and poor judgment. You have been given a community outpatient referral list to include phone numbers for [facility] and [facility] mobile crisis. If you experience worsening or a significant change in your symptoms, notify the physician immediately, utilize mobile crisis, or return to the Emergency Department at any time for re-evaluation. Dr. Le was consulted to care management of this patient; attending physicians in agreement with recommendations and disposition. Referrals: [facility] [Outside] - Follow up as needed [facility] [Outside] - Follow up as needed TEOFILO ROMERO DO [NO LOCAL MD] - Follow up as needed
[2020-05-02 16:25] LABS: ALBUMIN 4.3 g/dL (3.5-5.0); ALKALINE PHOSPHATASE 84 U/L (38-126); ANION GAP 7 (5-19); ASPARTATE AMINO TRANSFERASE 33 U/L (17-59); BILIRUBIN,DIRECT 0.1 mg/dL (0.0-0.4); BILIRUBIN,TOTAL 0.4 mg/dL (0.2-1.3); BLOOD UREA NITROGEN 15 mg/dL (7-20); CALCIUM 9.4 mg/dL (8.4-10.2); CARBON DIOXIDE 26 mmol/L (22-30); CHLORIDE 107 mmol/L (98-107); GLUCOSE 128 mg/dL (75-110); POTASSIUM 4.2 mmol/L (3.6-5.0); TOTAL PROTEIN 7.2 g/dL (6.3-8.2)
[2020-05-02 16:26] LABS: ACETAMINOPHEN < 10 ug/mL (10-30); ALCOHOL < 10 mg/dL (NONE DETECTED); SALICYLATE < 1.0 mg/dL (2.0-20.0)
[2020-05-02 17:53] LABS: APPEARANCE,URINE CLOUDY; BILIRUBIN,URINE NEGATIVE (NEGATIVE); COLOR,URINE YELLOW; GLUCOSE, URINE NEGATIVE (NEGATIVE); KETONES,URINE NEGATIVE (NEGATIVE); LEUKOCYTE ESTERASE,URINE NEGATIVE (NEGATIVE); NITRITE,URINE NEGATIVE (NEGATIVE); PROTEIN,URINE 30 mg/dL (NEGATIVE); URINE SPECIFIC GRAVITY 1.033
[2020-05-02 18:12] LABS: URINE BARBITURATES SCREEN NEGATIVE; URINE BENZODIAZEPINES SCREEN NEGATIVE; URINE COCAINE SCREEN UNCONFIRMED POSITIVE; URINE MARIJUANA (THC) SCREEN UNCONFIRMED POSITIVE; URINE METHADONE SCREEN NEGATIVE; URINE PHENCYCLIDINE SCREEN NEGATIVE
[2020-05-02 18:44] VITALS: BP 141/89
--- NOTE | 2020-05-02 19:03 | PSYCHOLOGICAL NOTE ---
Psych Note - Psych Note Date seen by psych provider: 05/02/20 Time seen by psych provider: 16:48 Psych Note: Reason for Consult: suspected overdose and suicidal ideation Consent permissions: Veena, present [id number] Patient is a 39 year old male who was admitted to the ED voluntarily with his and put on a 24 hour petition. He was suspected to have overdosed on psychiatric medications. Upon assessment, patient was agitated and irritable. He had been put on a 24 hour petition and was brought back to his room by hospital security and did not like how he was being forced to remain at the ED. Clinician discussed process and validated feelings and frustrations. It was explained that he was unable to leave, being on an IVC/ petition. Throughout evaluation, patients temperament calmed down. He denied suicidal ideation, plan, and intent. He denies homicidal ideation, plan, and intent. He states he is high on cocaine and uses marijuana and cocaine regularly. He states he used cocaine approximately 2 hours prior to coming to the ED. He denies overdosing on pills and states he only used cocaine and marijuana. Toxicology is positive for both. Patient has an extensive mental health and legal history. He and his state he has not been inpatient in approximately 6 years. He reports history of Schizoaffective disorder and was in long-term for 2 years and got out in October 2019. He has not been on psychiatric medications since then and used to be prescribed Seroquel, Depakote, and one other he could not recall. He reports that he has anger issues and this is normal. He denies any psychosis. Collateral: , Veena, was present for evaluation. She was asked to meet outside the room for collateral, however stated she did not want to leave the room. She reports she suspected an overdose because she found patient sweating. She states she did not see him take medications. When asked about finding an empty bottle of medication, she states she does not know if medications are even in the house. reports she feels patient is less impulsive when on psychiatric medications. She reports she feels as if his demeanor is at his baseline and he just becomes upset sometimes. denies anger outbursts in public settings such as grocery stores and such and states this is not common. She agrees to be a part of plan of care when patient is discharged. Patient was alert and oriented to self, person, place, time and situation. Mood was irritable and agitated with congruent affect. He denies current suicidal ideation, plan, and intent. He denies homicidal ideation, plan, and intent. Patient did not appear to be responding to internal stimuli as evidenced by fair eye contact and answering questions appropriately when addressed. Thought processes are linear and organized. Conversational speech was within normal limits for rate, tone and prosody. Intellectual abilities are estimated to be average. Insight, judgment and impulse control were fair as evidenced by when he attempted to leave the ED, he did not become violent or aggressive to staff members although he was pretty angry and irritable. Patient engages appropriately, given situation, and becomes less irritable as time went on. He demonstrates future forward goal oriented thinking and asked for more information on [place]. Clinical Presentation: suspected overdose and suicidal ideation IVC Criteria per [facility] 122C Dangerous to others Within the relevant past the individual No has inflicted or attempted to inflict or threatened to inflict serious bodily harm on another AND No that there is a reasonable probability that this conduct will be repeated. OR No has acted in such a way as to create a substantial risk of serious bodily harm to another AND No that there is a reasonable probability that this conduct will be repeated. OR No has engaged in extreme destruction of property AND NO that there is a reasonable probability that this conduct will be repeated. Previous episodes of dangerousness to others, when applicable, may be considered when determining reasonable probability of future dangerous conduct. Clear, cogent, and convincing evidence that an individual has committed a homicide in the relevant past is prima facie evidence of dangerousness to others. Dangerous to self Within the relevant past the individual has done any of the following: acted in such a way as to show ALL of the following: No The individual would be unable without care, supervision, and the continued assistance of others not otherwise available, to exercise self- control, judgment, and discretion in the conduct of the individual's daily responsibilities and social relations or to satisfy the individual's need for nourishment, personal or medical care, [facility], or self-protection and safety. AND No There is a reasonable probability of the individual suffering serious physical debilitation within the near future unless adequate treatment is given. A showing of behavior that is grossly irrational, of actions that the individual is unable to control, of behavior that is grossly inappropriate to the situation, or of other evidence of severely impaired insight and judgment shall create a prima facie inference that the individual is unable to care for himself or herself. OR No has attempted suicide or threatened suicide suspected overdose because she found patient sweating; did not see or find evidence; Patient denied SI, plan, and intent AND No that there is a reasonable probability of suicide unless adequate treatment is given OR No has mutilated himself or herself or attempted to mutilate himself or herself AND No that there is a reasonable probability of serious self-mutilation unless adequate treatment is given. NOTE: Previous episodes of dangerousness to self, when applicable, may be considered when determining reasonable probability of physical debilitation, suicide, or self-mutilation. Impression\plan: Patient is cleared from psychiatric services. Patient is recommended to rescind 24 hour petition. Patient was admitted to the ED for suspected overdose. He denies suicidal ideation, plan, and intent. He denies h omicidal ideation, plan, and intent. He stated he was high on cocaine and has been using marijuana as well. He denies taking any other pills or attempting to harm himself or end his life. Patients states she suspected an overdose because of him sweating, however did not see him do it or find evidence to support. Patient has been given resources for detox and substance use as well as [facility]. Upon discharge, he inquired for more information about [facility]. It was explained to him and his , he was allowed and recommended to go voluntarily. He could walk in or call in advanced and reserve a bed. Patient inquired about medication management as well and asked if [facility] was able to start him back on medications. He demonstrated future forward goal oriented thinking as discussion of resources took place and patient inquired about [facility] admittance and medication management. He was recommended to abstain from illegal substance use and follow up with a detox/ substance use facility. agrees to be part of plan of care and took resources. Dr. Le was consulted to care management of this patient; attending physicians in agreement with recommendations and disposition.
== END 2020-05-02 18:43 | disposition home or self-care (01) ==
LOC: ER 14:12
DX: T40.5X1A Poisoning by cocaine, accidental (unintentional), initial encounter (principal); R10.9 Unspecified abdominal pain; F17.210 Nicotine dependence, cigarettes, uncomplicated; Z88.0 Allergy status to penicillin
CPT/HCPCS: 36415; 80053; 80307; 81001; 85025; 99283